=== PATIENT | female | born 1990 | race Caucasian/White ===

== ENCOUNTER 2017-03-29 13:03 | Observation (INO) | payer BC, MEDICAID ==
[2017-03-29 14:17] LABS: Amphetamine,Urine NEG. (NEGATIVE); Barbiturate,Urine NEG. (NEGATIVE); Benzodiazepine,Urine NEG. (NEGATIVE); Cocaine,Urine NEG. (NEGATIVE); Methadone,Urine NEG. (NEGATIVE); Opiate,Urine NEG. (NEGATIVE); PCP,Urine NEG. (NEGATIVE); THC,Urine NEG. (NEGATIVE)
[2017-03-29] MEDS ORDERED: Lactated Ringers 1,000 ML IV SCH (15:30)
[2017-03-29 16:39] VITALS: BP 117/62; PULSE 72
--- NOTE | 2017-04-01 08:41 | XRAY ---
Indication: Low/irregular heart rate. well-being. Two-dimensional OB ultrasound performed. Comparison: None There is a single viable intrauterine currently in cephalic presentation. Normal four-chamber heart with heart rate 158 BPM. Normal three-vessel cord and cord insertion. Visualized stomach and bladder are unremarkable. Placenta is anterior fundal without abnormal retroplacental fluid collection. BPD measures 9.64 cm corresponding to 39 weeks 3 days. HC measures 33.92 cm corresponding to 39 weeks 0 days. AC measures 30.24 cm corresponding to 34 weeks 1 day. FL measures 6.96 cm corresponding to 35 weeks 5 days. JER is 13.4 cm. Impression: Single viable intrauterine with mean gestational age 37 weeks 1 day. Expected date confinement is April 18, 2017.
--- NOTE | 2017-04-01 08:41 | XRAY ---
Indication: well-being. Ultrasound biophysical profile study was performed. Comparison: None There is a single viable intrauterine with heart rate 158 BPM. Four-quadrant JER is 13.4 cm. Largest amniotic pocket 5 cm. 2 points given for breathing, movements, tone, and qualitative amniotic fluid volume. Impression: Total biophysical profile score is 8 out of 8.
== END 2017-03-29 18:55 | disposition home or self-care (01) ==
LOC: OB 13:03 → UNDOADMOB 13:03 → UNDODISOB 18:55
PROVIDERS: ADMIT Family Medicine; ATTEND Family Medicine
DX: Z34.83 Encounter for supervision of other normal pregnancy, third trimester (principal)
CPT/HCPCS: 59025; 76805; 76818; 80307; 87491; 87591; G0378

== ENCOUNTER 2017-03-30 15:02 | Inpatient (IN) | payer BC, MEDICAID ==
[2017-03-30] MEDS ORDERED: Zithromax 250 MG TABLET PO ONE (19:00)
[2017-03-30 19:16] LABS: Amphetamine,Urine NEG. (NEGATIVE); Barbiturate,Urine NEG. (NEGATIVE); Benzodiazepine,Urine NEG. (NEGATIVE); Cocaine,Urine NEG. (NEGATIVE); Methadone,Urine NEG. (NEGATIVE); Opiate,Urine NEG. (NEGATIVE); PCP,Urine NEG. (NEGATIVE); THC,Urine NEG. (NEGATIVE)
[2017-03-30 19:20] LABS: BASOPHIL % 0.1 % (0.0-0.4); Basophil (Absolute #) 0.02 (0-0.4); Eosinophil % 0.8 % (0.00-5.0); Eosinophil (Absolute #) 0.11 (0-0.5); Granulocyte Absolute (ANC) 9.97 (1.4-6.9); Granulocytes % 72.7 % (36.0-66.0); Hematocrit 36.1 % (35-47); Hemoglobin 12.1 gm/dl (12.0-16.0); Lymphocyte (Absolute #) 2.19 (1.0-4.6); Mean Cell Volume 98.1 fl (78-100); Mean Corpuscular Hemoglobin 32.8 pg (26-32); Mean Corpuscular Hgb Concent. 33.5 g/dl (32-36); Monocyte (Absolute #) 1.43 (0.0-1.3); Monocytes % 10.4 % (0.0-12.0); Platelet Count 210 K/mm3 (150-450); Red Blood Count 3.68 M/mm3 (4.1-5.4); Red Cell Distribution Width 12.1 % (11.5-14.0); White Blood Count 13.7 K/mm3 (4.0-10.5)
[2017-03-30] MEDS ORDERED: Lactated Ringers 1,000 ML IV ONE ×3 (20:01→23:18)
[2017-03-30 20:28] LABS: ABO TYPING B; Antibody Screen NEGATIVE (NEGATIVE); RH TYPING POSITIVE
[2017-03-30] MEDS ORDERED: BRETHINE 1 MG/ML SQ PRN (22:00)
[2017-03-30] MEDS ORDERED: Cervidil 10 MG VAG SCH (22:00)
[2017-03-30] MEDS ORDERED: OB EPIDURAL NAROPIN/SUFENTANIL IN NACL EPIDURAL PRN (23:15)
[2017-03-30] MEDS ORDERED: Ephedrine Sulfate 50 MG/ML IV PRN (23:15)
[2017-03-31] MEDS ORDERED: XYLOCAINE 1% HCL 20 ML MDV ONE (00:09)
[2017-03-31] MEDS ORDERED: PITOCIN 30 UNITS/ LR 500 ML 500 ML IV ONE (00:09)
[2017-03-31] MEDS ORDERED: LANSINOH 40 GM TOP PRN (01:29)
[2017-03-31] MEDS ORDERED: Anucort-HC SUPPOSITORY PR PRN (01:29)
[2017-03-31] MEDS ORDERED: Dulcolax 10 MG SUPP PR PRN (01:29)
[2017-03-31] MEDS ORDERED: Mylicon 80MG PO PRN (01:29)
[2017-03-31] MEDS ORDERED: Dermoplast Spray TP PRN (01:29)
[2017-03-31] MEDS ORDERED: TUCKS TP PRN (01:29)
[2017-03-31] MEDS ORDERED: CORTISONE 1% CREAM TP PRN (01:29)
[2017-03-31] MEDS ORDERED: Ambien 10 MG PO PRN (01:29)
[2017-03-31 02:59] VITALS: O2SAT 100
[2017-03-31] MEDS ORDERED: OMNIPEN 2 GM / NACL 100ML 100 ML IV ONE (06:00)
[2017-03-31] MEDS: MOTRIN 400 MG PO PRN ×2 (06:26→14:02)
[2017-03-31] MEDS ORDERED: PITOCIN 30 UNITS/ LR 500 ML 500 ML IV SCH (08:00)
[2017-03-31] MEDS ORDERED: XYLOCAINE 1% HCL 20 ML MDV IJ PRN (08:00)
[2017-03-31] MEDS ORDERED: Adacel Vial IM ONE (09:00)
[2017-03-31] MEDS: FERREX 150 PO SCH (09:52)
[2017-03-31] MEDS: TYLENOL EXTRA STRENGTH 500 MG PO PRN (09:52)
[2017-03-31] MEDS: Colace 100 MG PO SCH ×2 (09:52→21:58)
[2017-03-31] MEDS ORDERED: OMNIPEN 1GM / NaCl 100ML 100 ML IV SCH (12:00)
[2017-03-31 12:36] LABS: BASOPHIL % 0.1 % (0.0-0.4); Basophil (Absolute #) 0.02 (0-0.4); Eosinophil % 0.7 % (0.00-5.0); Granulocyte Absolute (ANC) 11.64 (1.4-6.9); Granulocytes % 77.7 % (36.0-66.0); Hematocrit 32.3 % (35-47); Hemoglobin 10.7 gm/dl (12.0-16.0); Lymphocyte (Absolute #) 1.86 (1.0-4.6); Lymphocytes % 12.4 % (24.0-44.0); Mean Cell Volume 99.7 fl (78-100); Mean Corpuscular Hgb Concent. 33.1 g/dl (32-36); Mean Platelet Volume 9.9 fl (6-9.5); Monocyte (Absolute #) 1.36 (0.0-1.3); Monocytes % 9.1 % (0.0-12.0); Platelet Count 185 K/mm3 (150-450); Red Blood Count 3.24 M/mm3 (4.1-5.4); Red Cell Distribution Width 12.1 % (11.5-14.0)
[2017-03-31] MEDS: NORCO 5/325 MG PO PRN ×2 (15:31→19:40)
[2017-04-01] MEDS: NORCO 5/325 MG PO PRN (01:58)
[2017-04-01] MEDS: MOTRIN 400 MG PO PRN ×3 (03:22→18:14)
[2017-04-01] MEDS: Colace 100 MG PO SCH ×2 (08:46→22:09)
[2017-04-01] MEDS: FERREX 150 PO SCH (08:46)
[2017-04-01] MEDS: TYLENOL EXTRA STRENGTH 500 MG PO PRN (14:09)
[2017-04-02] MEDS: Colace 100 MG PO SCH (08:16)
[2017-04-02] MEDS: FERREX 150 PO SCH (08:16)
[2017-04-02] MEDS: MOTRIN 400 MG PO PRN (08:16)
--- NOTE | 2017-04-02 08:23 | PCM.DS ---
Discharge Summary Date of Admission: 03/30/17 20:00 Admitting Physician: LANA ALEGRIA Consults: Consults on Case 03/30/17 23:15 Notify Anesthesia Provider PRN 03/31/17 01:29 Notify Physician Primary Care Provider: LANA ALEGRIA Allergies Allergies No Known Drug Allergies Allergy (Unverified 03/29/17 13:54) Hospital Summary - Hospital Course Hospital Course: 26 yo was admitted at term for IOL, had hx IUGR but this with good growth, although scant care. Hx third degree heart block with pacemaker placed age 22 during first . I spoke with her treating station chief at the time and with OB business analysis consultant prior to induction. She had some decelerations during labor but progressed quickly and had a very short second stage. Delivered vigorous female. Has been well. Bleeding vaginally is minimal today. Ibuprofen for pain. Pt has been treated for chlamydia several times this . Was positive just before admission; given 1g po zithromax x1 and her has an rx for zithromax as well. - Vitals & Intake/Output Vital Signs: Vital Signs Temperature 98.6 F 04/02/17 02:00 Pulse Rate 70 04/02/17 02:00 Respiratory Rate 20 04/02/17 02:00 Blood Pressure 114/58 04/02/17 02:00 O2 Sat by Pulse Oximetry 100 03/31/17 00:30 Oxygen-Last Documented O2 Percentage 100% Intake & Output: Intake & Output 03/30/17 03/31/17 04/01/17 04/02/17 11:59 11:59 11:59 11:59 Intake Total 1100 1200 Output Total 200 Balance 900 1200 Weight 164 kg - Lab Result Diagrams: 03/31/17 12:00 Discharge Exam General Appearance: no apparent distress, alert Neurologic Exam: oriented x 3, cooperative Skin Exam: normal color, warm, dry, No rash Respiratory Exam: normal breath sounds, lungs clear, No crackles/rales, No rhonchi, No wheezing Cardiovascular Exam: regular rate/rhythm, normal heart sounds, No murmur Gastrointestinal/Abdomen Exam: soft, normal bowel sounds, other (fundus firm under umbilicus) Extremity Exam: swelling, No pedal edema Back Exam: No rash Final Diagnosis/Problem List - Final Discharge Diagnosis/Problem (1) Vaginal delivery Current Visit: Yes Status: Acute Assessment & Plan: PPD #2, doing great, home today. (2) Chlamydia Current Visit: Yes Status: Acute Assessment & Plan: treated, will be abstinent for some time, and partner being treated. (3) Anemia Current Visit: Yes Status: Acute Assessment & Plan: home on Fe daily x 1 mo - Discharge Disposition: Home, Self-Care Condition: Good Prescriptions: New Docusate Sodium 100 mg [Colace 100 MG] 100 mg PO BID PRN #60 capsule PRN Reason: Constipation Ferrous Sulfate 325 mg PO DAILY #30 tablet Ibuprofen 800 mg PO TID PRN #35 tablet PRN Reason: Pain Follow up with: LANA ALEGRIA [Primary Care Provider] - 1 Week
[2017-04-02 15:33] VITALS: BP 117/59; PULSE 77
== END 2017-04-02 13:50 | disposition home or self-care (01) | DRG 775 ==
LOC: OB 18:21 → OBSVTOIN 20:00
PROVIDERS: ADMIT Family Medicine; ATTEND Family Medicine
PROC: 10E0XZZ Delivery of Products of Conception, External Approach (ICD-10-PCS; principal; 2017-03-30)
DX: O75.5 Delayed delivery after artificial rupture of membranes (principal); Z3A.39 39 weeks gestation of pregnancy; Z37.0 Single live birth; D64.9 Anemia, unspecified; I44.2 Atrioventricular block, complete; Z95.0 Presence of cardiac pacemaker; A74.9 Chlamydial infection, unspecified
CPT/HCPCS: 01967; 36415; 80307; 85025; 86850; 86900; 86901; 90471; 90715; G0378; J0290; J2590; J2795; A9270-GY

== ENCOUNTER 2022-02-16 17:46 | Emergency (ER) | payer MEDICAID, OTHER ==
[2022-02-16] MEDS ORDERED: XYLOCAINE 1% HCL 20 ML MDV IJ ONE (17:47)
[2022-02-16 20:48] VITALS: O2SAT 100
[2022-02-16 21:28] LABS: Bacteria RARE /HPF (NEGATIVE); Epithelial Cells RARE /HPF (FEW); Mucus MANY /HPF (NEGATIVE)
[2022-02-16 21:31] LABS: Appearance CLOUDY (CLEAR); Glucose NEGATIVE (NEGATIVE)
[2022-02-16 21:32] LABS: Bilirubin MODERATE (NEGATIVE); Dipstick done @ ? MAIN LAB; Ketones MODERATE-40 (NEGATIVE); Nitrite POSITIVE (NEGATIVE); Protein,Urine Dip >=300 (Negative); RBC >101 /HPF (0-2); RBC LARGE Ery/ul (0-5); Specific Gravity >=1.030 (1.005-1.025); Urobilinogen 1 mg/dL (0-1)
[2022-02-16 21:33] LABS: Urine Cultured Indicated? YES
[2022-02-16] MEDS ORDERED: TORAdol 30 mg Injection IM ONE (21:42)
--- NOTE | 2022-02-16 21:43 | ERPHSYRPT ---
- History of Present Illness Time Seen by Provider: 02/16/22 21:38 Source: patient Exam Limitations: no limitations Patient Subjective Stated Complaint: " I've been having mid to lower for the past week and I've been pacing around the house due to the pain. I have some tro uble sleeping. It takes a while for me to pee and I've had a UTI before. My periods have also been really light lately." Triage Nursing Assessment: Pt presents to ER with complaints of mid to lower back pain, states pain is constant and has been occurring for 1 week. Rates pain 10/10 scale. Denies injury. Pt complains of difficulty urinating and light periods. Expresses concerns about hormones too and new hair growth on upper lip. Pt is alert and oriented x 3. Skin is pink, warm, and dry. Respirations are easy and unlabored at this time. Pt denies any nausea/vomiting/diarrhea. Complains of slight head pain and chest pains intermittently. Physician History: Patient is a 31-year-old female with a history of back pain presents to our ED for evaluation of recurrence of the back pain. Patient had her back pain some years ago. She states that her current back pain started 2 weeks ago. Pain is localized to the junction of the lumbar and thoracic spine. No trauma. No fever. Patient believes she may have a UTI. No fever. Symptoms are mild to moderate in intensity. No specific worsening improving factors. Patient voices no other complaints concerns at this time. Patient denies the possibility of . Timing/Duration: week(s) (2 weeks) Severity: moderate Modifying Factors: Improves With: nothing Associated Symptoms: denies symptoms Allergies/Adverse Reactions: No Known Drug Allergies Allergy (Unverified 03/29/17 13:54) Home Medications: Iago Carbonate [Iago Carbonate ER] 450 mg PO DAILY 02/16/22 [History] carBAMazepine [Tegretol] 200 mg PO DAILY 02/16/22 [History] Hx Tetanus, Diphtheria Vaccination/Date Given: Yes Hx Influenza Vaccination/Date Given: Yes Hx Pneumococcal Vaccination/Date Given: No Immunizations Up to Date: Yes Travel Risk - International Travel Have you traveled outside of the country in past 3 weeks: No - Coronavirus Screening Are you exhibiting any of the following symptoms?: No Close contact with a COVID-19 positive Pt in past 14-21 Days: No - Vaccine Status Have you recieved a Covid-19 vaccination: Yes Outboard Motor Tester: Unknown - Vaccination Dates Dates if Unknown: unknown - Review of Systems Constitutional: No Symptoms, No Fever, No Chills Eyes: No Symptoms Ears, Nose, & Throat: No Symptoms Respiratory: No Symptoms, No Cough, No Dyspnea Cardiac: No Symptoms, No Chest Pain, No Edema, No Syncope Abdominal/Gastrointestinal: No Symptoms, No Abdominal Pain, No Nausea, No Vomiting, No Diarrhea Genitourinary Symptoms: No Symptoms, No Dysuria Musculoskeletal: No Symptoms, No Back Pain, No Neck Pain Skin: No Symptoms, No Rash Neurological: No Symptoms, No Dizziness, No Focal Weakness, No Sensory Changes Psychological: No Symptoms Endocrine: No Symptoms Hematologic/Lymphatic: No Symptoms Immunological/Allergic: No Symptoms All Other Systems: Reviewed and Negative - Past Medical History Pertinent Past Medical History: Yes Neurological History: Epilepsy ENT History: No Pertinent History Cardiac History: Other Respiratory History: No Pertinent History Endocrine Medical History: No Pertinent History Musculoskeletal History: No Pertinent History GI Medical History: No Pertinent History History: No Pertinent History Psycho-Social History: No Pertinent History Female Reproductive Disorders: No Pertinent History Other Medical History: 3RD DEGREE HEART BLOCK, PACEMAKER PLACED 2013 - Past Surgical History Past Surgical History: Yes Neuro Surgical History: No Pertinent History Cardiac: Pacemaker Respiratory: No Pertinent History Gastrointestinal: No Pertinent History Genitourinary: No Pertinent History Musculoskeletal: No Pertinent History Female Surgical History: No Pertinent History - Social History Smoking Status: Current every day smoker How long have you smoked: 2 months Exposure to second hand smoke: No Drug Use: none Patient Lives Alone: No - Female History Hx Last Menstrual Period: 01/17/22 Hx Now: No - Nursing Vital Signs Nursing Vital Signs: Initial Vital Signs Temperature 98.6 F 02/16/22 20:36 Pulse Rate 76 02/16/22 20:36 Respiratory Rate 18 02/16/22 20:36 Blood Pressure 116/65 02/16/22 20:36 O2 Sat by Pulse Oximetry 100 02/16/22 20:36 Pain Scale Pain Intensity [Back] 10 Pain Intensity 10 - Physical Exam General Appearance: no apparent distress, alert Eye Exam: PERRL/EOMI, eyes nml inspection Ears, Nose, Throat Exam: normal ENT inspection, TMs normal, pharynx normal, moist mucous membranes Neck Exam: normal inspection, non-tender, supple, full range of motion Respiratory Exam: normal breath sounds, lungs clear, airway intact, No respiratory distress Cardiovascular Exam: regular rate/rhythm, normal heart sounds, normal peripheral pulses Gastrointestinal/Abdomen Exam: soft, normal bowel sounds, No tenderness, No mass Back Exam: normal inspection, normal range of motion, other (Some tenderness to palpation midline at the junction of the thoracic and lumbar spine. Overlying soft tissue intact. No signs of trauma.), No CVA tenderness, No vertebral tenderness Extremity Exam: normal inspection, normal range of motion, pelvis stable Neurologic Exam: alert, oriented x 3, cooperative, normal mood/affect, nml cerebellar function, nml station & gait, sensation nml, No motor deficits Skin Exam: normal color, warm, dry, No rash Lymphatic Exam: No adenopathy SpO2 Interpretation: normal SpO2: 100 O2 Delivery: Room Air - Course Nursing assessment & vital signs reviewed: Yes - Radiology Exams L-Spine X-ray Interpretation: Interpreted by me (No fracture dislocations. No soft tissue abnormalities) Ordered Tests: Active Orders 24 hr Category Date Time Status LUMBAR LIMITED (2 OR 3 VIEWS) Stat Exams 02/16/22 21:49 Taken CULTURE,URINE Stat Lab 02/16/22 21:20 Received UA W/RFX CULTURE Stat Lab 02/16/22 21:20 Completed Medication Summary Discontinued Medications Generic Name Dose Route Start Last Admin Trade Name Ayesha PRN Reason Stop Dose Admin Ceftriaxone Sodium 1,000 mg 02/16/22 21:55 Ceftriaxone Sodium 1000 Mg Inj Vial IM 02/16/22 21:56 STAT ONE Ketorolac Tromethamine 30 mg 02/16/22 21:42 Ketorolac Tromethamine 30 Mg/Ml Inj IM 02/16/22 21:43 STAT ONE Lorazepam 0.5 mg 02/16/22 21:46 02/16/22 22:03 Lorazepam 2 Mg/1 Ml 2 Mg Vial IV 02/16/22 21:47 Not Given STAT ONE Lab/Rad Data: Laboratory Results 02/16/22 Range/Units 21:20 Urinalys Dipstick Clnc MAIN LAB Urine Color PINK (YELLOW) Urine Appearance CLOUDY A (CLEAR) Urine pH 6.0 (5-6) Ur Specific [place] >=1.030 A (1.005-1.025) POC Urine Protein Conf >=300 A (Negative) Urine Ketones MODERATE-40 A (NEGATIVE) Urine Nitrite POSITIVE A (NEGATIVE) Urine Bilirubin MODERATE A (NEGATIVE) Urine Urobilinogen 1 A (0-1) mg/dL Urine Leukocytes NEGATIVE (NEGATIVE) Urine WBC (Auto) 16-25 A (0-5) /HPF Urine RBC (Auto) >101 A (0-2) /HPF U Epithel Cells (Auto) RARE (FEW) /HPF Urine Bacteria (Auto) RARE (NEGATIVE) /HPF Urine RBC LARGE A (0-5) Micah/ul Urine Mucus (Auto) MANY A (NEGATIVE) /HPF Ur Culture Indicated? YES Urine Glucose NEGATIVE (NEGATIVE) mg/dL - Progress Progress: improved Progress Note: Work-up reveals urinary tract infection. X-ray lumbar spine negative. No fracture dislocations. No indication for further work-up. [id number] analgesics as necessary. Patient agrees to follow-up with her primary care doctor within 48 hours for evaluation. Portions of this note were created with voice recognition technology. There may be grammatical, spelling, punctuation or sound alike errors 02/16/22 22:05 Counseled pt/family regarding: lab results, diagnosis, need for follow-up, rad results - Departure Departure Disposition: Home Clinical Impression: Urinary tract infection Condition: Stable Critical Care Time: No Referrals: LANA CHANG [Primary Care Provider] - Follow up/PCP as directed Prescriptions: Cephalexin Mh 500 mg [Keflex 500 mg] 500 mg PO QID 7 Days #28 cap
[2022-02-16] MEDS ORDERED: Ativan 2 MG/1 ML VIAL IV ONE (21:46)
[2022-02-16] MEDS ORDERED: Rocephin 1000 MG INJ IM ONE (21:55)
[2022-02-16] MEDS ORDERED: TORAdol 30 mg Injection ONE (22:04)
[2022-02-16] MEDS ORDERED: Rocephin 1000 MG INJ ONE (22:04)
[2022-02-16 22:32] VITALS: BP 109/60; PULSE 75
--- NOTE | 2022-02-17 08:45 | XRAY ---
Indication: Thoracolumbar pain 2 weeks. No known injury. Comparison: None 3 view lumbar spine demonstrates 5 lumbar segments in normal alignment with vertebral body heights/disc spaces maintained. No bony, articular, or soft tissue abnormalities.
== END 2022-02-16 22:33 | disposition home or self-care (01) ==
LOC: ED 17:46
DX: N39.0 Urinary tract infection, site not specified (principal); M54.9 Dorsalgia, unspecified; Z79.899 Other long term (current) drug therapy; Z72.0 Tobacco use
CPT/HCPCS: 72100; 81015; 87086; 96372; 99283; J0696; J1885

== ENCOUNTER 2023-01-12 12:06 | Emergency (ER) | payer OTHER ==
[2023-01-12 12:38] VITALS: TEMP 97.4
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
[2023-01-12 13:01] VITALS: BP 107/53; PULSE 79; RESP 16
[2023-01-12 13:08] VITALS: O2SAT 99
== END 2023-01-12 13:11 ==
LOC: ED 12:06
DX: T74.31XA Adult psychological abuse, confirmed, initial encounter (principal); T74.11XA Adult physical abuse, confirmed, initial encounter; F32.9 Major depressive disorder, single episode, unspecified; Y07.010 Husband, current, perpetrator of maltreatment and neglect; R45.851 Suicidal ideations; Z79.899 Other long term (current) drug therapy; Z72.0 Tobacco use
CPT/HCPCS: 99281

== ENCOUNTER 2023-05-28 19:32 | Observation (INO) | payer OTHER ==
[2023-05-28 19:54] LABS: AMNISURE TEST RESULTS POSITIVE (NEGATIVE)
[2023-05-28 20:07] VITALS: O2SAT 97
[2023-05-28 20:11] LABS: Amphetamine,Urine NEGATIVE (NEGATIVE); Barbiturate,Urine NEGATIVE (NEGATIVE); Benzodiazepine,Urine NEGATIVE (NEGATIVE); Cocaine,Urine NEGATIVE (NEGATIVE); Methadone,Urine NEGATIVE (NEGATIVE); Opiate,Urine NEGATIVE (NEGATIVE); PCP,Urine NEGATIVE (NEGATIVE); THC,Urine NEGATIVE (NEGATIVE)
[2023-05-28 20:13] LABS: ADD URINE CULTURE? NO (NO); Appearance Clear (Clear); Bacteria Rare /HPF (None Seen); Bilirubin Negative (Negative); Blood Negative (Negative); Epithelial Cells Few /HPF (None Seen); Glucose, Urine Negative (Negative); Hyaline Casts NONE SEEN /LPF (0-2); Ketones Negative (Negative); Leukocyte Esterase Trace (Negative); Nitrite Negative (Negative); Protein,Urine Dip Negative (Negative); RBC 0-2 /HPF (0-5)
[2023-05-28] MEDS ORDERED: OMNIPEN 2 GM ONE (20:14)
[2023-05-28] MEDS ORDERED: Lactated Ringers 1,000 ML IV ONE (20:15)
[2023-05-28] MEDS ORDERED: Sodium Chloride 100ML MINI-BAG PLUS 100 ML IV ONE (20:15)
[2023-05-28] MEDS ORDERED: Zofran 4 MG/2 ML VIAL IV PRN (20:20)
[2023-05-28] MEDS: Lactated Ringers 1,000 ML IV SCH (20:26)
[2023-05-28] MEDS: OMNIPEN 2 GM*** 2 G in Sodium Chloride 100ML MINI-BAG PLUS 100 ML IV ONE (20:27)
[2023-05-28 20:43] LABS: BASOPHIL % 0.2 % (0.0-0.4); Basophil (Absolute #) 0.03 x10^3/uL (0-0.4); Eosinophil (Absolute #) 0.12 x10^3/uL (0-0.5); Hematocrit 30.6 % (35-47); Hemoglobin 10.1 g/dL (12.0-16.0); IMMATURE GRAN # 0.07 x10^3u/L (0.00-0.03); IMMATURE GRAN % 0.6 % (0.00-0.4); Lymphocyte (Absolute #) 2.31 x10^3/uL (1.0-4.6); Lymphocytes % 19.1 % (24.0-44.0); Mean Cell Volume 96.2 fL (78-100); Mean Corpuscular Hemoglobin 31.8 pg (26-32); Mean Platelet Volume 9.3 fL (7.5-11.0); Monocyte (Absolute #) 1.07 x10^3/uL (0.0-1.3); Monocytes % 8.8 % (0.0-12.0); Neutrophil % 70.3 % (36.0-66.0); Platelet Count 303 x10^3/uL (150-450); Red Blood Count 3.18 x10^6/uL (4.1-5.4); White Blood Count 12.1 x10^3/uL (4.0-10.5)
--- NOTE | 2023-05-28 21:14 | PCM.SSS ---
History of Present Illness - Chief Complaint Chief Complaint: term History of Present Illness: is a 32 year old female with unknown gestational age and no care who presented to the hospital with a complaint of SROM at home at 19:00, she denies contractions or discomfort. She claims to have had an ultrasound at [facility] in [facility] with EDC of 05/30/2023 and that she was unable to get an appointment anywhere to be seen for care. She had a cardiac history with a pacemaker placed for third degree heart block and a history of seizures, currently on no medications. - Review of Systems Constitutional: No Fever, No Chills Respiratory: No Cough, No Short Of Breath Cardiac: No Chest Pain, No Edema, No Syncope Abdominal/Gastrointestinal: No Abdominal Pain, No Nausea, No Vomiting Genitourinary Symptoms: Other (SROM, no contractions, normal movement), No Vaginal Bleeding Skin: No Rash Medications & Allergies Home Medications: Home Medication List No Reportable Medications [No Reported Medications] 05/28/23 [History Confirmed 05/28/23] Allergies/Adverse Reactions: Allergies Allergy/AdvReac Type Severity Reaction Status Date / Time No Known Drug Allergies Allergy Verified 05/28/23 19:40 - Past Medical History Past Medical History: Yes Neurological History: Epilepsy, Seizures ENT History: No Pertinent History Cardiac History: Congenital Heart Disease, Other Respiratory History: No Pertinent History Endocrine Medical History: No Pertinent History Musculoskelatal History: No Pertinent History GI Medical History: No Pertinent History History: No Pertinent History Pyscho-Social History: Depression Reproductive Disorders: No Pertinent History Comment: pacemaker 2014 due to 3rd degree heart block, also has epileptic brain seizures and vasovagal syncope - Past Surgical History Past Surgical History: Yes Neuro Surgical History: No Pertinent History Cardiac History: Pacemaker Respiratory Surgery: No Pertinent History GI Surgical History: No Pertinent History Genitourinary Surgical Hx: No Pertinent History Musculskeletal Surgical Hx: No Pertinent History Female Surgical History: No Pertinent History Other Surgical History: WISDOM TEETH REMOVAL - Social History Smoking Status: Current every day smoker How long have you smoked: 1 year Exposure to second hand smoke: Yes Alcohol: None Drug Use: none - Social Determinants of Health Will the patient participate in the screening: Yes Do you worry about a steady place to live?: No Do you have any problems with any of the following?: No known problems In the past 12 months,have you had to go without utilities?: No Have you or anyone in your house had to go without enough: No Transportation Issues: No Has anyone in your support network made you feel unsafe?: No Does the patient want assistance with any of the above?: No Comment: limited and late care. States saw Dr sarah beth Zavala in [facility] for 1st appointment then no further care other than an ultrasound at [facility]. - Physical Exam Vital Signs: Vital Signs - 24 hr Temp Pulse Resp BP Pulse Ox 05/28/23 19:55 97.8 F 79 17 118/58 97 General Appearance: no apparent distress Neurologic Exam: alert, oriented x 3, cooperative Respiratory Exam: normal breath sounds, lungs clear, No respiratory distress Cardiovascular Exam: regular rate/rhythm, normal heart sounds, normal peripheral pulses Gastrointestinal/Abdomen Exam: soft, normal bowel sounds, other (gravid uterus, appears term), No tenderness, No mass Extremity Exam: normal inspection, normal range of motion, pelvis stable Skin Exam: normal color, warm, dry, No rash Results - Labs Lab/Micro Results: Lab Results-Last 24 Hours 05/28/23 05/28/23 05/28/23 Range/Units 19:52 19:52 20:35 WBC 12.1 H (4.0-10.5) x10^3/uL RBC 3.18 L (4.1-5.4) x10^6/uL Hgb 10.1 L (12.0-16.0) g/dL Hct 30.6 L (35-47) % MCV 96.2 (78-100) fL MCH 31.8 (26-32) pg MCHC 33.0 (32-36) g/dL RDW 12.0 (11.5-14.0) % Plt Count 303 (150-450) x10^3/uL MPV 9.3 (7.5-11.0) fL Gran % 70.3 H (36.0-66.0) % Immature Gran % (Auto) 0.6 H (0.00-0.4) % Nucleat RBC Rel Count 0.0 (0.00-0.1) % Eos # (Auto) 0.12 (0-0.5) x10^3/uL Immature Gran # (Auto) 0.07 H (0.00-0.03) x10^3u/L Absolute Lymphs (auto) 2.31 (1.0-4.6) x10^3/uL Absolute Monos (auto) 1.07 (0.0-1.3) x10^3/uL Absolute Nucleated RBC 0.00 (0.00-0.01) x10^3u/L Lymphocytes % 19.1 L (24.0-44.0) % Monocytes % 8.8 (0.0-12.0) % Eosinophils % 1.0 (0.00-5.0) % Basophils % 0.2 (0.0-0.4) % Absolute Granulocytes 8.50 H (1.4-6.9) x10^3/uL Basophils # 0.03 (0-0.4) x10^3/uL Urine Color Yellow (Yellow) Urine Appearance Clear (Clear) Urine pH 6.0 (4.6-8.0) Ur Specific Basye 1.010 (1.005-1.030) Urine Protein Negative (Negative) Urine Glucose (UA) Negative (Negative) mg/dL Urine Ketones Negative (Negative) Urine Blood Negative (Negative) Urine Nitrite Negative (Negative) Urine Bilirubin Negative (Negative) Urine Urobilinogen 1.0 A (0.2) mg/dL Ur Leukocyte Esterase Trace A (Negative) U Hyaline Cast (Auto) NONE SEEN (0-2) /LPF Urine Microscopic RBC 0-2 (0-5) /HPF Urine Microscopic WBC 6-10 A (0-5) /HPF Ur Epithelial Cells Few (None Seen) /HPF Urine Bacteria Rare A (None Seen) /HPF Urine Culture Reflexed NO (NO) Urine Opiates Level NEGATIVE (NEGATIVE) Ur Methadone NEGATIVE (NEGATIVE) Urine Barbiturates NEGATIVE (NEGATIVE) Ur Phencyclidine (PCP) NEGATIVE (NEGATIVE) Urine Amphetamine NEGATIVE (NEGATIVE) U Benzodiazepine Level NEGATIVE (NEGATIVE) Urine Cocaine NEGATIVE (NEGATIVE) Urine Marijuana (THC) NEGATIVE (NEGATIVE) Assessment/Plan (1) Spontaneous rupture of amniotic membranes Current Visit: Yes Status: Acute Assessment & Plan: patient has a complicated medical history with no care, she is clearly a very high risk situation. FHR 130's cat 1, SVE per nursing 4cm [place] irregular contractions. I spoke with Dr Thom MALDONADO at [facility] and Dr Hernandez OB hospitalist and they agree to accept this patient in transfer via ambulance due to the medical complexity and availability of NICU services and cardiology services in the event of any complication. The patient and her significant other both seem upset to be transferred but I explained that I am the only available physician for her and her baby at this time and I do not feel comfortable delivering her baby here under these circumstances with no care, even if the ultrasound information she reports is accurate that was a late scan and her gestational age is uncertain. I feel it is in her best interest to be transferred via ambulance to [facility] with SROM when she is not in active labor and a maternal medicine expert Dr Tomas agreed when I discussed the case with her. She reluctantly agrees to transfer to higher level of service at this time. (2) Insufficient care in third trimester Current Visit: Yes Status: Acute Code(s): O09.33 - SUPRVSN OF PREG W INSUFFICIENT ANTENAT CARE, THIRD TRIMESTER (3) Pacemaker Current Visit: Yes Status: Acute Code(s): Z95.0 - PRESENCE OF CARDIAC PA CEMAKER (4) Seizure disorder Current Visit: Yes Status: Acute Code(s): G40.909 - EPILEPSY, UNSP, NOT INT RACTABLE, WITHOUT STATUS EPILEPTICUS (5) with uncertain dates in third trimester Current Visit: Yes Status: Acute Code(s): Z34.93 - ENCNTR FOR SUPRVSN OF NORMAL PREG, UNSP, THIRD TRIMESTER (6) Bipolar disorder Current Visit: Yes Status: Acute Assessment & Plan: the patient let me know that she has a history of bipolar disorder and has been admitted to the psych unit at [facility] previously in the past. Code(s): F31.9 - BIPOLAR DISORDER, UNSPECIFIED Hospital Summary - Vitals & Intake/Output Vital Signs: Vital Signs Temperature 97.8 F 05/28/23 19:55 Pulse Rate 79 05/28/23 19:55 Respiratory Rate 17 05/28/23 19:55 Blood Pressure 118/58 05/28/23 19:55 O2 Sat by Pulse Oximetry 97 05/28/23 19:55 Intake & Output: Intake & Output 05/26/23 05/27/23 05/28/23 05/29/23 11:59 11:59 11:59 11:59 Weight 152 kg - Lab Result Diagrams: 05/28/23 20:35 Lab Results-Last 24 Hrs: Lab Results-Last 24 Hours 05/28/23 05/28/23 05/28/23 Range/Units 19:52 19:52 20:35 WBC 12.1 H (4.0-10.5) x10^3/uL RBC 3.18 L (4.1-5.4) x10^6/uL Hgb 10.1 L (12.0-16.0) g/dL Hct 30.6 L (35-47) % MCV 96.2 (78-100) fL MCH 31.8 (26-32) pg MCHC 33.0 (32-36) g/dL RDW 12.0 (11.5-14.0) % Plt Count 303 (150-450) x10^3/uL MPV 9.3 (7.5-11.0) fL Gran % 70.3 H (36.0-66.0) % Immature Gran % (Auto) 0.6 H (0.00-0.4) % Nucleat RBC Rel Count 0.0 (0.00-0.1) % Eos # (Auto) 0.12 (0-0.5) x10^3/uL Immature Gran # (Auto) 0.07 H (0.00-0.03) x10^3u/L Absolute Lymphs (auto) 2.31 (1.0-4.6) x10^3/uL Absolute Monos (auto) 1.07 (0.0-1.3) x10^3/uL Absolute Nucleated RBC 0.00 (0.00-0.01) x10^3u/L Lymphocytes % 19.1 L (24.0-44.0) % Monocytes % 8.8 (0.0-12.0) % Eosinophils % 1.0 (0.00-5.0) % Basophils % 0.2 (0.0-0.4) % Absolute Granulocytes 8.50 H (1.4-6.9) x10^3/uL Basophils # 0.03 (0-0.4) x10^3/uL Urine Color Yellow (Yellow) Urine Appearance Clear (Clear) Urine pH 6.0 (4.6-8.0) Ur Specific Basye 1.010 (1.005-1.030) Urine Protein Negative (Negative) Urine Glucose (UA) Negative (Negative) mg/dL Urine Ketones Negative (Negative) Urine Blood Negative (Negative) Urine Nitrite Negative (Negative) Urine Bilirubin Negative (Negative) Urine Urobilinogen 1.0 A (0.2) mg/dL Ur Leukocyte Esterase Trace A (Negative) U Hyaline Cast (Auto) NONE SEEN (0-2) /LPF Urine Microscopic RBC 0-2 (0-5) /HPF Urine Microscopic WBC 6-10 A (0-5) /HPF Ur Epithelial Cells Few (None Seen) /HPF Urine Bacteria Rare A (None Seen) /HPF Urine Culture Reflexed NO (NO) Urine Opiates Level NEGATIVE (NEGATIVE) Ur Methadone NEGATIVE (NEGATIVE) Urine Barbiturates NEGATIVE (NEGATIVE) Ur Phencyclidine (PCP) NEGATIVE (NEGATIVE) Urine Amphetamine NEGATIVE (NEGATIVE) U Benzodiazepine Level NEGATIVE (NEGATIVE) Urine Cocaine NEGATIVE (NEGATIVE) Urine Marijuana (THC) NEGATIVE (NEGATIVE) - Procedures and Test Procedures and Tests throughout Hospitalization: Therapy Orders & Screens 05/28/23 20:07 Smoking Cessation Education ONCE Comment: Diagnosis: term Smoking Status: Current every day smoker How long have you smoked: 1 year Have you smoked in the past 12 months: Yes Approximately how many cigarettes per day: 10/day earlier in now 1- 2 Do you dip or chew tobacco: No - Discharge Disposition: DC TO [facility] Condition: Stable Prescriptions: No Action No Reportable Medications [No Reported Medications] Additional Instructions: transfer to [facility] by [facility] amublance service, Dr Hernandez accepting physician to labor and delivery unit at [facility] Follow up with: DOCTOR,NO FAMILY [Primary Care Provider] -
[2023-05-28 21:41] VITALS: BP 117/56; PULSE 72; RESP 16; TEMP 98
[2023-05-29] MEDS ORDERED: OMNIPEN 1 GM*** 1 GM in Sodium Chloride 100ML MINI-BAG PLUS 100 ML IV SCH (00:30)
[2023-05-30 08:09] LABS: RPR Non Reactive (Non Reactive)
[2023-05-30 21:21] LABS: HBsAg Screen Negative (Negative); HIV Screen 4th Generation wRfx Non Reactive (Non Reactive)
== END 2023-05-28 23:24 | disposition home or self-care (01) ==
LOC: OB 19:32
PROVIDERS: ADMIT Family Medicine; ATTEND Family Medicine
DX: O09.33 Supervision of pregnancy with insufficient antenatal care, third trimester (principal); Z3A.39 39 weeks gestation of pregnancy
CPT/HCPCS: 36415; 80307; 81001; 84112; 85025; 86592; 86762; 87340; 87389; G0378; G0379; J0290